=== PATIENT | male | born 1985 | race American Indian/Alaskan Native ===

== ENCOUNTER 2018-06-29 17:00 | Emergency (ER) | payer BC, OTHER ==
--- NOTE | 2018-06-29 17:40 | Emergency Department Report ---
Abscess Boil HPI - HPI Chief Complaint: Skin/Abscess/Foreign Body Stated Complaint: CYST UNDER (L) ARM Time Seen by Provider: 06/29/18 17:29 Duration: 2 Days Location: Upper Extremity (left axilla) Severity: Severe History: Yes Pain (7/10 left axilla), Yes Previous History, No Fever, No Purulent Drainage, No Numbness, No Foreign Body, No Insect Bite HPI: This is a 33-year-old male here report that he has abscess under his left armpit 2 days. Denies any drainage. Denies any fever or chills. Denies any insect bite. He reports painful 7-10 and sharp pain. Pain is worse to touch and with movement. Better rest. Denies any medical problems. Denies any nausea or vomiting. Denies any numbness or tingling to extremities. No medication taken. Tetanus shot is up-to-date 2017. Denies any shortness of breath or chest pain. Home Medications: Previous Rx's Medication Instructions Recorded Last Taken Type Clindamycin [Clindamycin CAP] 300 mg PO Q8H 10 Days #30 cap 06/29/18 Unknown Rx Ibuprofen [Motrin] 800 mg PO Q8HR PRN #12 tablet 06/29/18 Unknown Rx Allergies/Adverse Reactions: Allergies Allergy/AdvReac Type Severity Reaction Status Date / Time No Known Allergies Allergy Verified 06/29/18 17:08 ED Review of Systems ROS: Stated complaint: CYST UNDER (L) ARM Other details as noted in HPI Constitutional: denies: chills, fever ENT: denies: throat pain Respiratory: denies: cough, shortness of breath, wheezing Cardiovascular: denies: chest pain, palpitations, edema, syncope Gastrointestinal: denies: nausea, vomiting Musculoskeletal: denies: back pain, joint swelling, arthralgia, myalgia Skin: other (abscess armpit) Neurological: denies: headache, numbness, paresthesias ED Past Medical Hx - Past Medical History Previous Medical History?: No - Surgical History Past Surgical History?: No - Family History Family history: no significant - Social History Smoking Status: Current Every Day Smoker Substance Use Type: Alcohol, Marijuana - Medications Home Medications: Home Medications Medication Instructions Recorded Confirmed Last Taken Type Clindamycin [Clindamycin CAP] 300 mg PO Q8H 10 Days #30 cap 06/29/18 Unknown Rx Ibuprofen [Motrin] 800 mg PO Q8HR PRN #12 tablet 06/29/18 Unknown Rx ED Abscess Boil Physical Exam - Exam General: Vital signs noted. No distress. Alert and acting appropriately. This is a 33-year-old male well-nourished well-developed in no acute distress. Front/Back of Body, Lg (Color): 1 - Patient with 2 cm Indurated Nonfluctuant Area to Left Axilla. Tender to Palpate. Minimal Erythema. No Drainage Noted. Size: 2 cm Exam: Yes Tenderness ( left axilla), Yes Surrounding Cellulites/Erythema, Yes Normal Neurologic Exam (head and oriented 3 and no focal deficits), Yes Normal Circulation (extremity physical exam), No Fluctuance (positive induration without any fluctuance), No Lymphangitis, No Crepitation, No Heart Murmur (regular rate and rhythm) I & D Note - I & D Note I & D Note: 2 Centimeter dime size abscess noted to the left axilla. Positive induration without any fluctuance. Unable to drain at this time. Patient started on antibiotic and given pain medication and told to place warm compresses 3-4 times a day to facilitate soft pain and drainage and if ears no drainage after 4 days of pain and antibiotic to return to hospital for incision and drainage procedure. ED Course Vital Signs 06/29/18 17:05 Temperature 97.8 F Pulse Rate 62 Respiratory 18 Rate Blood Pressure 117/71 O2 Sat by Pulse 99 Oximetry - Reevaluation(s) Reevaluation #1: 06/29/18 17:58 Given clindamycin 600 mg onto the emergency room for abscess and cellulitis and given Motrin 800 mg for pain. He is stable and in no acute distress. Critical care attestation.: If time is entered above; I have spent that time in minutes in the direct care of this critically ill patient, excluding procedure time. ED Medical Decision Making - Medical Decision Making This is a 33-year-old male here for abscess to left axilla. He is on to have a 2 cm erythema, indurated and nonfluctuant area to left axilla without any drainage. Patient was given clindamycin and Motrin and emergency room and I instructed in place warm compresses to affected area 3-4 times a day to facilitate soft and drainage and a half area is not draining within 4 days of p ain and antibiotic to return to the emergency room for incision and drainage. He is in agreement. Patient discharged home in stable condition. Vital signs are stable is a febrile and pain is stable. He is given prescription for clindamycin and Motrin. Tetanus vaccines up-to-date. He is to follow-up with his primary care physician in 2-3 days if he does not have one to follow up at [facility] ED Disposition Clinical Impression: Cellulitis of axilla, left, Abscess of axilla, left Disposition: [id number] TO HOME OR SELFCARE Is pt being admited?: No Does the pt Need Aspirin: No Condition: Stable Instructions: Abscess (ED), Cellulitis (ED) Additional Instructions: Take antibiotics as prescribed. Motrin as prescribed but take this medication with food as it can cause upset stomach. Plan warm compresses to affected area 3-4 times a day to facilitate soft any drainage of abscess. If this is not draining within 4 days of treatment and antibiotics, please return to emergency room for incision and drainage. Follow up with primary care doctor in 2-3 days Keep Affected area clean and dry Referrals: [facility] [Outside] - 3-5 Days return to, emergency room in 4 days [Other] - 07/03/18 (If affected area is not draining within 4 days and an antibiotic. Please return to the emergency room for incision and drainage) Forms: Work/School Release Form(ED)
[2018-06-29] MEDS ORDERED: CLEOCIN PO ONE (17:41)
[2018-06-29] MEDS ORDERED: IBUPROFEN PO ONE (17:52)
[2018-06-29 18:36] VITALS: BP 120/74
== END 2018-06-29 18:34 | disposition home or self-care (01) ==
LOC: ED 17:00
DX: L02.412 Cutaneous abscess of left axilla (principal); F17.200 Nicotine dependence, unspecified, uncomplicated; F12.10 Cannabis abuse, uncomplicated
CPT/HCPCS: 99282

== ENCOUNTER 2019-08-04 20:53 | Emergency (ER) | payer BC ==
[2019-08-04 21:02] VITALS: BP 119/68
--- NOTE | 2019-08-04 22:43 | Ultrasound Report ---
ULTRASOUND SCROTUM INDICATION: TESTICULAR PAIN. COMPARISON None available. FINDINGS -- RIGHT TESTIS: Size: 4.4 x 2.7 x 3.1 cm. Echotexture: Normal. Color Doppler Flow: Normal. Lesions: None. EPIDIDYMIS: Size: Normal. Echotexture: Normal. Color Doppler Flow: Normal. Lesions: None. Hydrocele: Small Varicocele: None. Additional Findings: None. FINDINGS -- LEFT TESTIS: Size: 4.1 x 2.4 x 3.3 cm. Echotexture: Normal. Color Doppler Flow: Normal. Lesions: None. EPIDIDYMIS: Size: Normal. Echotexture: Normal. Color Doppler Flow: Normal. Lesions: None. Hydrocele: Small Varicocele: Small Additional Findings: None. IMPRESSION: 1. Small left scrotal varicocele. 2. Very small symmetric bilateral hydroceles. 3. No testicular abnormality bilaterally. Signer Name: Jag Cannon MD Signed: 08/04/2019 10:39 PM Workstation Name: [id number]
[2019-08-04 23:07] LABS: Bilirubin,Urine NEG (Negative); Blood,Urine NEG (Negative); Color,Urine Yellow (Yellow); Mucus,Urine 1+ /HPF
[2019-08-04 23:08] LABS: WBC,Urine > 182.0 /HPF (0.0-6.0)
--- NOTE | 2019-08-05 02:31 | Emergency Department Report ---
ED Male HPI - General Chief complaint: Abdominal Pain Stated complaint: ABD/GROIN PAIN Time Seen by Provider: 08/05/19 01:16 Source: patient Mode of arrival: Ambulatory Limitations: No Limitations - History of Present Illness Initial comments: This is a 34-year-old -Portuguese male who presents to the emergency room with testicular swelling and tenderness for 2 days. Patient states he was diagnosed with bilaterally hydroceles 2 months ago at [facility]. Patient states he never followed up. Reports pain improve after receiving antibiotics. He denies penile discharge, hematuria, urinary frequency, urgency, dysuria, fever, and chills. MD Complaint: testicle pain, testicle swelling Severity: moderate Severity scale (0 -10): 7 Quality: aching Consistency: constant Improves with: supine Worsens with: palpation, movement swelling. denies: discharge, mass, rash, urinary retention, blood in urine, dysuria, fever, nausea/vomiting, incontinence - Related Data Sexually active: Yes Previous Rx's Medication Instructions Recorded Last Taken Type Clindamycin [Clindamycin CAP] 300 mg PO Q8H 10 Days #30 cap 06/29/18 Unknown Rx Ibuprofen [Motrin] 800 mg PO Q8HR PRN #12 tablet 06/29/18 Unknown Rx DOXYCYCLINE Hyclate [Vibramycin 100 mg PO Q12HR #14 capsule 08/05/19 Unknown Rx CAP] Allergies Allergy/AdvReac Type Severity Reaction Status Date / Time No Known Allergies Allergy Verified 06/29/18 17:08 ED Review of Systems ROS: Stated complaint: ABD/GROIN PAIN Other details as noted in HPI Constitutional: denies: chills, fever Respiratory: denies: cough, shortness of breath, wheezing Cardiovascular: denies: chest pain, palpitations Gastrointestinal: denies: abdominal pain, nausea, diarrhea Genitourinary: testicular pain, other (Testicular swelling). denies: urgency, dysuria, frequency, hematuria, discharge Musculoskeletal: denies: back pain, joint swelling, arthralgia Skin: denies: rash, lesions Neurological: denies: headache, weakness, paresthesias Psychiatric: denies: anxiety, depression ED Past Medical Hx - Social History Smoking Status: Current Every Day Smoker Substance Use Type: Alcohol - Medications Home Medications: Home Medications Medication Instructions Recorded Confirmed Last Taken Type Clindamycin [Clindamycin CAP] 300 mg PO Q8H 10 Days #30 cap 06/29/18 Unknown Rx Ibuprofen [Motrin] 800 mg PO Q8HR PRN #12 tablet 06/29/18 Unknown Rx DOXYCYCLINE Hyclate [Vibramycin 100 mg PO Q12HR #14 capsule 08/05/19 Unknown Rx CAP] ED Physical Exam - General Limitations: No Limitations General appearance: alert, in no apparent distress - Respiratory Respiratory exam: Present: normal lung sounds bilaterally. Absent: respiratory distress - Cardiovascular Cardiovascular Exam: Present: regular rate, normal rhythm. Absent: systolic murmur, diastolic murmur, rubs, gallop - GI/Abdominal GI/Abdominal exam: Present: soft, normal bowel sounds. Absent: distended, tenderness, guarding, rebound, rigid - exam: Present: testicular tenderness, scrotal swelling, circumcision. Absent: urethral discharge, vertical testicular lie External exam: Present: normal external exam - Extremities Exam Extremities exam: Present: normal inspection - Back Exam Back exam: Present: normal inspection - Neurological Exam Neurological exam: Present: alert, oriented X3 - Psychiatric Psychiatric exam: Present: normal affect, normal mood - Skin Skin exam: Present: warm, dry, intact, normal color. Absent: rash ED Course Vital Signs 08/04/19 20:57 Temperature 98.9 F Pulse Rate 90 Respiratory 20 Rate Blood Pressure 119/68 O2 Sat by Pulse 98 Oximetry ED Medical Decision Making - Radiology Data Radiology results: report reviewed ULTRASOUND SCROTUM INDICATION: TESTICULAR PAIN. COMPARISON None available. FINDINGS -- RIGHT TESTIS: Size: 4.4 x 2.7 x 3.1 cm. Echotexture: Normal. Color Doppler Flow: Normal. Lesions: None. EPIDIDYMIS: Size: Normal. Echotexture: Normal. Color Doppler Flow: Normal. Lesions: None. Hydrocele: Small Varicocele: None. Additional Findings: None. FINDINGS -- LEFT TESTIS: Size: 4.1 x 2.4 x 3.3 cm. Echotexture: Normal. Color Doppler Flow: Normal. Lesions: None. EPIDIDYMIS: Size: Normal. Echotexture: Normal. Color Doppler Flow: Normal. Lesions: None. Hydrocele: Small Varicocele: Small Additional Findings: None. IMPRESSION: 1. Small left scrotal varicocele. 2. Very small symmetric bilateral hydroceles. 3. No testicular abnormality bilaterally. - Medical Decision Making This is a 34-year-old male that presents to the emergency room with testicular swelling and pain for 2 days. Vitals are stable and patient in no acute distress. Work-up: Urinalysis and testicular ultrasound. Urinalysis had a large amount of leukocyte esterase and elevated WBCs. Ultrasound findings of small left scrotal varicocele. Very small symmetric bilateral hydroceles. No testicular abnormality bilaterally. Ultrasound findings are the same according to patient is what he was told by [facility] 2 months ago. Patient states that he never followed up with the urologist. Empirically treated with Rocephin and azithromycin. Start doxycycline. Referral to urology for continued care. Patient instructed to use jock strap and ice to improve the swelling. Follow-up with primary care doctor. Patient discharged home stable. Critical care attestation.: If time is entered above; I have spent that time in minutes in the direct care of this critically ill patient, excluding procedure time. ED Disposition Clinical Impression: Hydrocele in adult, Varicocele present on ultrasound of scrotum, Testicular pain Disposition: TO HOME OR SELFCARE Is pt being admited?: No Condition: Stable Instructions: Hydrocele (ED), Varicocele (ED), Testicle Pain (ED) Additional Instructions: Follow-up with the urologist from the list provided below. Complete antibiotics as prescribed. Prescriptions: DOXYCYCLINE Hyclate [Vibramycin CAP] 100 mg PO Q12HR #14 capsule Referrals: SHELBY JO JR, MD [Primary Care Provider] - 3-5 Days [facility] [Provider Group] - 3-5 Days Forms: Work/School Release Form(ED) Time of Disposition: 02:32
[2019-08-05] MEDS ORDERED: AZITHROMYCIN 250 MG TAB PO ONE (02:40)
[2019-08-05] MEDS ORDERED: LIDOCAINE-MPF (1%) 10 MG/1 ML VIAL 5 ML INFILTRATI ONE (02:40)
== END 2019-08-05 03:22 | disposition home or self-care (01) ==
LOC: ED 20:53
DX: N43.3 Hydrocele, unspecified (principal); I86.1 Scrotal varices; N50.819 Testicular pain, unspecified; F17.200 Nicotine dependence, unspecified, uncomplicated; Z79.899 Other long term (current) drug therapy
CPT/HCPCS: 81001; 93975; 96372; 99284; J0696